=== PATIENT | female | born 1970 | race Caucasian/White ===

== ENCOUNTER 2016-06-06 08:18 | Emergency (ER) | payer OTHER ==
[~2016-06-06] VITALS: Wt 64.9 kg
[~2016-06-06 08:18] MED LIST: ALBU8.5H3; CALC500T99; CYCL-319 PO; FAMO20TA18; FLUT1DIS21; HYDR-13 PO; HYDR-2059 PO; HYDR-3011 PO; HYDR-3498 PO; IBUP-1542 PO; IBUP800T25 PO; MONT10TA21; NAPR-688 PO; NASO17 NASAL; PROM6.25 PO; PSEU30TA38 PO; RTPRO NEB; THEO400T2; [UNRECOGNIZED DRUG - CODE] PO
[2016-06-06] MEDS ORDERED: IBUPROFEN 600 MG TAB PO ONE (09:00)
[2016-06-06] MEDS ORDERED: HYD25 PO (09:40)
[2016-06-06] MEDS ORDERED: ALBU2.5V3 NEB (09:40)
[2016-06-06] MEDS ORDERED: ADV25050 INHALATION (09:40)
[2016-06-06] MEDS ORDERED: MONT10TA21 PO (09:40)
[2016-06-06] MEDS ORDERED: NAPR-688 PO (09:41)
[2016-06-06] MEDS ORDERED: THEO400T2 PO (09:41)
[2016-06-06] MEDS ORDERED: ALBU18HF INHALATION (09:41)
[2016-06-06] MEDS ORDERED: FLUO10TA PO (09:42)
--- NOTE | 2016-06-06 09:44 | RADRPT ---
PROCEDURE: Chest Radiograph. CLINICAL INDICATION: Chest pain after trauma TECHNIQUE: Single frontal chest radiograph. COMPARISON: Chest radiograph 10/25/2015 FINDINGS: The cardiomediastinal silhouette is within normal limits. There is no pneumothorax. No infiltrate o r effusion is seen. The bones are intact. IMPRESSION: 1. Unremarkable chest radiograph. RPTAT: KK .Genaro Monsivais MD, MD Date Time Electronically viewed and signed by .Genaro Monsivais MD, MD on 06/06/2016 09:43 .B/
[2016-06-06] MEDS ORDERED: HYDR-906 PO (09:45)
[2016-06-06] MEDS ORDERED: IBUP-1542 PO (10:27)
[2016-06-06] MEDS ORDERED: HYDR-902 PO (10:27)
--- NOTE | 2016-06-06 10:31 | ERD ---
ER Documentation Chief Complaint Date/Time DATE: 06/06/16 TIME: 10:28 Chief Complaint left side clavicular pain. no sob HPI This is a 46-year-old female complains of sharp pain located at the left clavicular head. She said the pain for 2 days now. She says the pain is sharp worse with movement of the left upper extremity and worse with laying on her left shoulder at night trying to sleep. Denies any recent trauma or pushing pulling injury. No shortness of breath no radiation of pain no diaphoresis no palpitations no fever no cough. She says the pain is better with rest and worse with movement ROS All systems reviewed and are negative except as per history of present illness. Medications Home Meds Active Scripts Hydrocodone/Acetaminophen ([place] 10-325 Tablet) 1 Each Tablet, 1 TAB PO Q6H Y for PAIN, #20 TAB Prov:NOAM JOHNSON. DO 06/06/16 Ibuprofen* (Motrin*) 600 Mg Tab, 600 MG PO Q8, #30 TAB Prov:NOAM JOHNSON DO 06/06/16 Reported Medications Hydrocodone/Acetaminophen ([place] 5-325 Tablet) 1 Each Tablet, 1 EACH PO DAILY Y for SEVERE PAIN LEVEL 7-10, TAB 06/06/16 Fluoxetine Hcl* (Fluoxetine Hcl*) 10 Mg Tablet, 10 MG PO DAILY, TAB 06/06/16 Naproxen* (Naproxen*) 500 Mg Tablet, 500 MG PO BID Y for PAIN, TAB 06/06/16 Theophylline Anhydrous* (Theophylline* ER) 400 Mg Tablet.sa, 400 MG PO BID, TAB.SA 06/06/16 Albuterol Sulfate* (Ventolin HFA*) 18 Gm Hfa.aer.ad, 2 PUFF INHALATION Q6H Y for WHEEZING AND RESP DISTRESS, #1 INHALER 06/06/16 Montelukast Sodium* (Singulair*) 10 Mg Tablet, 10 MG PO QHS, #30 TAB 06/06/16 Salmeterol Xinaf/Fluticasone* (Advair*) 250-50 Diskus Inhaler, 1 INH INHALATION BID, #1 INHALER 06/06/16 Albuterol Sulfate* (Albuterol Sulfate* Neb) 0.083%-3 Ml Neb, 2.5 MG NEB Q3H Y for WHEEZING AND SOB, #30 VIAL 06/06/16 Hydrochlorothiazide* (Hydrochlorothiazide*) 25 Mg Tab, 25 MG PO DAILY, #30 TAB 06/06/16 Discontinued Reported Medications Naproxen* (Naproxen*) 500 Mg Tablet, 500 MG PO PRN BID 11/23/10 Hydroxyzine Hcl* (Hydroxyzine Hcl*) 25 Mg Tablet, 25 MG PO PRN BID 11/23/10 Hydrocodone Bit/Acetaminophen (Hydrocodone-Apap 5-500 Tab) 1 Tab Tablet, 1 TAB PO PRN DAILY 11/23/10 Cyclobenzaprine Hcl* (Cyclobenzaprine Hcl*) 10 Mg Tablet, 10 MG PO HS 11/23/10 Ibuprofen* (Ibuprofen*) 600 Mg Tablet, 600 MG PO QID 11/23/10 Hydrocodone Bit-Acetaminophen* (Hydrocodone-APAP*) 1 Tab Tablet, 0.5 TAB PO PRN QID 11/23/10 Trimethobenzamide Hcl* (Trimethobenzamide Hcl*) 300 Mg Capsule, 300 MG PO QID 11/23/10 Fluticasone/Salmeterol (Advair 500-50 Diskus) 1 Disk W/Dev Disk.w.dev 06/29/10 Albuterol Sulfate* (Proair HFA*) 8.5 Gm Hfa.aer.ad 06/29/10 Calcium Carbonate ([id number]) 1 Tab Tablet 06/29/10 Montelukast Sodium* (Singulair*) 10 Mg Tablet 06/29/10 Famotidine* (Famotidine*) 20 Mg Tablet 06/29/10 Theophylline Anhydrous* (Theophylline* ER) 400 Mg Tablet.sa 06/29/10 Discontinued Scripts Ibuprofen* (Motrin*) 800 Mg Tab, 800 MG PO Q6H Y for PAIN AND OR ELEVATED TEMP, #30 TAB Prov:JOHANN MORROW DO 10/25/15 Mometasone Furoate* (Nasonex*) 50 Mcg/[place] - 17 Gm [place].pump, 1 SPRAY NASAL BID, #1 BOTTLE IN EACH NOSTRIL Prov:RYLAN LARRY PA-C 06/04/15 Pseudoephedrine Hcl* (Pseudoephedrine Hcl*) 30 Mg Tablet, 30 MG PO Q6 Y for CONGESTION, #30 TAB Prov:RYLAN LARRY PA-C 06/04/15 Albuterol Sulfate* (Proventil* Neb) 0.083% Neb, 2.5 MG NEB Q4 Y for SHORTNESS OF BREATH, #30 EA Prov:RYLAN LARRY PA-C 06/04/15 Promethazine w/Codeine* (Phenergan w/Codeine* Syrup) 5 Ml Syrup, 5 ML PO Q4H Y for COUGH, #100 ML Prov:RYLAN LARRY PA-C 06/04/15 Ibuprofen* (Motrin*) 600 Mg Tab, 600 MG PO Q6, #20 TAB Prov:BETHEL ADAIR MD 05/15/15 Hydrocodone Bit-Acetaminophen* ([place]if[place]*) 5-325 Mg Tab, 1 TAB PO Q4H Y for PAIN, # 14 TAB Prov:BETHEL ADAIR MD 05/15/15 Allergies Allergies: Coded Allergies: No Known Allergy (Verified , 11/23/10) PMhx/Soc History of Surgery: Yes (R Knee Surg,L Ankle Surg) Anesthesia Reaction: No Hx Neurological Disorder: No Hx Respiratory Disorders: Yes (Asthma) Hx Cardiac Disorders: Yes (HTN) Hx Psychiatric Problems: Yes (Depression) Hx Miscellaneous Medical Probl: Yes (GERD) Hx Alcohol Use: Yes (Social) Hx Substance Use: No Hx Tobacco Use: Yes (quit 7 months ago) Smoking Status: Current some day smoker FmHx Family History: No coronary disease Physical Exam Vitals Vital Signs Date Time Temp Pulse Resp B/P Pulse Ox O2 Delivery O2 Flow Rate FiO2 06/06/16 09:08 73 19 135/87 100 Room Air 06/06/16 08:20 98.5 85 20 193/110 100 Physical Exam Const: Well-developed, well-nourished Head: Atraumatic, normocephalic Eyes: Normal Conjunctiva, PERRLA, EOMI, normal sclera, no nystagmus ENT: Normal External Ears, Nose and Mouth, moist mucus membranes. Neck: Full range of motion. No meningismus, no lymphadenopathy. Resp: Clear to auscultation bilaterally, no wheezing, rhonchi, rales Cardio: Regular rate and rhythm, no murmurs, S1 S2 present Abd: Soft, non tender x 4, non distended. Normal bowel sounds, no guarding or rebound, no pulsitile abdominal masses or bruits Skin: No petechiae or rashes, no ecchymosis , no maculopapular rash Back: No midline or flank tenderness Ext: No cyanosis, or edema, FROM x 4, normal inspection, neurovascularly intact x 4, reproducible tenderness to palpation of the left clavicular head no erythema to the skin. The pain is worse with range of motion of the shoulder and elevation of the left upper extremity and with attempts to try to touch shoulder blades together will induce pain. Neur: Awake and alert, STR 5/5 x 4, sensation intact x 4, no focal findings, cerebellum intact Psych: Normal Mood and Affect Results 24 hrs Current Medications Medications (Trade) Dose Ordered Sig/Kacey Route PRN Reason Start Time Stop Time Status Last Admin Dose Admin Ibuprofen (Motrin) 600 mg ONCE ONCE PO 06/06/16 09:00 06/06/16 09:01 DC 06/06/16 08:55 Procedures/MDM EKG: Rate/Rhythm: Normal Sinus Rhythm,NL intervals QRS, ST, QT: NORMAL TX, QRS, QT] Impression: NORMAL EKG PROCEDURE: Chest Radiograph. CLINICAL INDICATION: Chest pain after trauma TECHNIQUE: Single frontal chest radiograph. COMPARISON: Chest radiograph 10/25/2015 FINDINGS: The cardiomediastinal silhouette is within normal limits. There is no pneumothorax. No infiltrate or effusion is seen. The bones are intact. IMPRESSION: 1. Unremarkable chest radiograph. RPTAT: KK .Genaro Monsivais MD, Date Time Electronically viewed and signed by .Genaro Monsivais MD, MD on 2016 09:43 .B/ CC: NOAM JOHNSON DO Patient's pain is musculoskeletal in origin there is pain at the clavicular head joint. Patient does not use IV drugs. No signs of septic joint. Departure Diagnosis: Primary Impression: Costochondritis Condition: Stable Patient Instructions: Costochondritis NOAM JOHNSON DO Jun 06, 2016 10:31
[2016-06-06 10:33] VITALS: BP 127/75; PULSE 77; RESP 19; TEMP 98
== END 2016-06-06 10:34 | disposition home or self-care (01) ==
LOC: E/R 08:18
DX: M94.0 Chondrocostal junction syndrome [Tietze] (principal); F17.210 Nicotine dependence, cigarettes, uncomplicated; I10 Essential (primary) hypertension; J45.909 Unspecified asthma, uncomplicated
CPT/HCPCS: 71010; 93005; Z7502; Z7610

== ENCOUNTER 2017-06-20 08:15 | Emergency (ER) | END 2017-06-20 10:54 | disposition home or self-care (01) ==

== ENCOUNTER 2018-04-23 01:39 | Emergency (ER) | payer OTHER ==
[~2018-04-23] VITALS: Ht 154.9 cm; Wt 72.3 kg
[~2018-04-23 01:39] MED LIST changes: +ADV25050 INHALATION; +ALBU18HF INHALATION; +ALBU2.5V3 NEB; -ALBU8.5H3; +AZIT250T PO; -CALC500T99; -CYCL-319 PO; +DYAZIDE PO; -FAMO20TA18; +FLUO10TA PO; -FLUT1DIS21; -HYDR-13 PO; -HYDR-2059 PO; -HYDR-3011 PO; -HYDR-3498 PO; +HYDR-4011 PO; +HYDR25TA6 PO; -IBUP800T25 PO; +METR500T19 PO; -MONT10TA21; +MONT10TA21 PO; -NASO17 NASAL; +OXYB10TA PO; +PRED10TA PO; -PROM6.25 PO; -PSEU30TA38 PO; -RTPRO NEB; -THEO400T2; +THEO400T2 PO; -[UNRECOGNIZED DRUG - CODE] PO
[2018-04-23 01:44] VITALS: Ht 154.9 cm; Wt 72.3 kg
--- NOTE | 2018-04-23 02:11 | ERD ---
ER Documentation Chief Complaint Chief Complaint headache/anxiety x 2 days HPI This is a 48-year-old female who presents here in emergency department with complaints of headache that got worse today. Stated that she has history of hypertension. LMP: Unknown. M2. Denies head injury, loss of consciousness, dizziness, neck pain, neck stiffness, throat pain, difficulty swallowing, difficulty breathing lying flat, shoulder pain, chest pain, back pain, abdominal pain, nausea, vomiting, constipation, diarrhea, urinary symptoms, or possibility being , loss of bowel and bladder control, trauma, injury, falls, difficulty walking due to pain, numbness or tingling sensation, calf pain, recent travel, recent major surgery in the last 3 weeks, calf pain, recent long travel, recent exposure to any illness, recent antibiotic use in the last 3 months, fever, chills, seizures. Past medical history: Hypertension. Surgical history: Social: Denies smoking, use of alcoholic beverages, use of illegal drugs. ROS All systems reviewed and are negative except as per history of present illness. Medications Home Meds Active Scripts Benzonatate* (Tessalon Perle*) 100 Mg Capsule, 100 MG PO Q8H PRN for COUGH, #15 CAP Prov:PASILABAN,KLAR F 04/23/18 Azithromycin* (Zithromax*) 250 Mg Tablet, 250 MG PO .ZPACK DIRECTED, #6 TAB TAKE 500 MG (2 TABS) THE FIRST DAY THEN 250 MG (1 TAB) DAYS 2-5 Prov:PASILABAN,KLAR F 04/23/18 Hydroxyzine Hcl* (Hydroxyzine Hcl*) 50 Mg Tablet, 50 MG PO Q6H PRN for ANXIETY, #30 TAB Prov:PASILABAN,KLAR F 04/23/18 Hydrocodone/Acetaminophen ([place] 5-325 Tablet) 1 Each Tablet, 1 TAB PO Q6H PRN for PAIN, #20 TAB Prov:PASILABAN,KLAR F 04/23/18 Azithromycin* (Zithromax*) 250 Mg Tablet, 250 MG PO .ZPACK DIRECTED, #6 TAB TAKE 500 MG (2 TABS) THE FIRST DAY THEN 250 MG (1 TAB) DAYS 2-5 Prov:GURPREET STORY 06/20/17 Ibuprofen* (Motrin*) 600 Mg Tab, 600 MG PO Q8, #30 TAB Prov:NOAM JOHNSON DO 06/06/16 Reported Medications Metronidazole* (Metronidazole*) 500 Mg Tablet, 500 MG PO Q8, TAB 06/20/17 Prednisone* (Prednisone*) 10 Mg Tab, 10 MG PO TID, TAB 06/20/17 Oxybutynin Chloride (Oxybutynin Chloride ER) 10 Mg Tab.er.24, 10 MG PO DAILY, #30 06/20/17 Triamterene-HCTZ (Dyazide) 37.5 - 25 Mg Cap, 1 TAB PO DAILY, #30 06/20/17 Hydrocodone/Acetaminophen ([place] 5-325 Tablet) 1 Each Tablet, 1 EACH PO DAILY PRN for SEVERE PAIN LEVEL 7-10, TAB 06/06/16 Fluoxetine Hcl* (Fluoxetine Hcl*) 10 Mg Tablet, 10 MG PO DAILY, TAB 06/06/16 Naproxen* (Naproxen*) 500 Mg Tablet, 500 MG PO BID PRN for PAIN, TAB 06/06/16 Theophylline Anhydrous* (Theophylline* ER) 400 Mg Tablet.sa, 400 MG PO BID, TAB.SA 06/06/16 Albuterol Sulfate* (Ventolin HFA*) 18 Gm Hfa.aer.ad, 2 PUFF INHALATION Q6H PRN for WHEEZING AND RESP DISTRESS, #1 INHALER 06/06/16 Montelukast Sodium* (Singulair*) 10 Mg Tablet, 10 MG PO QHS, #30 TAB 06/06/16 Salmeterol Xinaf/Fluticasone* (Advair*) 250-50 Diskus Inhaler, 1 INH INHALATION BID, #1 INHALER 06/06/16 Albuterol Sulfate* (Albuterol Sulfate* Neb) 0.083%-3 Ml Neb, 2.5 MG NEB Q3H PRN for WHEEZING AND SOB, #30 VIAL 06/06/16 Hydrochlorothiazide* (Hydrochlorothiazide*) 25 Mg Tab, 25 MG PO DAILY, #30 TAB 06/06/16 Allergies Allergies: Coded Allergies: No Known Allergy (Verified , 04/23/18) PMhx/Soc History of Surgery: Yes (R Knee Surg,L Ankle Surg) Anesthesia Reaction: No Hx Neurological Disorder: No Hx Respiratory Disorders: Yes (Asthma) Hx Cardiac Disorders: Yes (HTN) Hx Psychiatric Problems: Yes (Depression) Hx Miscellaneous Medical Probl: Yes (GERD) Hx Alcohol Use: Yes (Social) Hx Substance Use: No Hx Tobacco Use: Yes Physical Exam Vitals Physical Exam Const: No acute distress Head: Atraumatic Eyes: Normal Conjunctiva ENT: Normal External Ears, Nose and Mouth. Neck: Full range of motion. No meningismus. Resp: Clear to auscultation bilaterally Cardio: Regular rate and rhythm, no murmurs Abd: Soft, non tender, non distended. Normal bowel sounds Skin: No petechiae or rashes Back: No midline or flank tenderness Ext: No cyanosis, or edema Neur: Awake and alert Psych: Normal Mood and Affect Results 24 hrs Laboratory Tests Test 04/23/18 02:26 04/23/18 03:26 White Blood Count 8.5 10^3/ul Red Blood Count 4.40 10^6/ul Hemoglobin 14.2 g/dl Hematocrit 42.0 % Mean Corpuscular Volume 95.5 fl Mean Corpuscular Hemoglobin 32.3 pg Mean Corpuscular Hemoglobin Concent 33.8 g/dl Red Cell Distribution Width 12.9 % Platelet Count 256 10^3/UL Mean Platelet Volume 9.9 fl Immature Granulocytes % 0.200 % Neutrophils % 58.4 % Lymphocytes % 33.4 % Monocytes % 6.1 % Eosinophils % 1.4 % Basophils % 0.5 % Nucleated Red Blood Cells % 0.0 /100WBC Immature Granulocytes # 0.020 10^3/ul Neutrophils # 5.0 10^3/ul Lymphocytes # 2.8 10^3/ul Monocytes # 0.5 10^3/ul Eosinophils # 0.1 10^3/ul Basophils # 0.0 10^3/ul Nucleated Red Blood Cells # 0.0 10^3/ul Prothrombin Time 11.7 Sec Prothrombin Time Ratio 0.9 INR International Normalized Ratio 0.85 Activated Partial Thromboplast Time 28.2 Sec Sodium Level 142 mmol/L Potassium Level 4.1 mmol/L Chloride Level 102 mmol/L Carbon Dioxide Level 29 mmol/L Anion Gap 11 Blood Urea Nitrogen 14 mg/dl Creatinine 0.51 mg/dl Est Glomerular Filtrat Rate mL/min > 60 mL/min Glucose Level 105 mg/dl Calcium Level 9.7 mg/dl Total Bilirubin 0.1 mg/dl Direct Bilirubin 0.00 mg/dl Indirect Bilirubin 0.1 mg/dl Aspartate Amino Transf (AST/SGOT) 16 IU/L Alanine Aminotransferase (ALT/SGPT) 27 IU/L Alkaline Phosphatase 90 IU/L Troponin I < 0.012 ng/ml Total Protein 6.6 g/dl Albumin 4.3 g/dl Globulin 2.30 g/dl Albumin/Globulin Ratio 1.86 Urine Color STRAW Urine Clarity SLIGHTLY CLOUDY Urine pH 6.0 Urine Specific [place] 1.002 Urine Ketones NEGATIVE mg/dL Urine Nitrite NEGATIVE mg/dL Urine Bilirubin NEGATIVE mg/dL Urine Urobilinogen NEGATIVE mg/dL Urine Leukocyte Esterase NEGATIVE Lilly/ul Urine Microscopic RBC 0 /HPF Urine Microscopic WBC 0 /HPF Urine Squamous Epithelial Cells FEW /HPF Urine Bacteria FEW /HPF Urine Hemoglobin 1+ mg/dL Urine Glucose NEGATIVE mg/dL Urine Total Protein NEGATIVE mg/dl Current Medications Medications Dose Sig/Kacey Start Time Status Last (Trade) Ordered Route PRN Stop Time Admin Dose Reason Admin 1 tab ONCE ONCE 04/23/18 DC 04/23/18 Acetaminophen PO 03:30 04:05 / 04/23/18 Hydrocodone 03:31 Bitart ([place] (10/325)) Procedures/MDM Diagnostic tests: EKG: Normal sinus rhythm. Blood works: Reviewed. CT of the brain: No acute intracranial abnormality. Chest x-ray: Central right upper lobe bronchitis. Treatment: Not applicable. Re-evaluation: Denies headache, chest pain. Lung sounds are clear to auscultation. Differential diagnosis I have low suspicion for sepsis, acute hemorrhage, acute coronary syndrome, acute myocardial infarction. Final diagnosis: Incidental finding of bronchitis. Headache. Prescription: Azithromycin. [place]. Hydroxyzine. Follow-up with PCP in the next 24-48 hours. Come back here in the emergency department for any new symptoms or any worsening symptoms. All questions and concerns were answered. Patient and family members verbalized understanding and agreed with plan of care. Hemodynamically stable on discharge. Departure Diagnosis: Primary Impression: Headache Additional Impressions: Bronchitis Anxiety Condition: Stable Additional Instructions: Follow-up with PCP in the next 24-48 hours. Come back here in the emergency department for any new symptoms or any worsening symptoms. ROBERT ADAN Apr 23, 2018 02:11
[2018-04-23] MEDS ORDERED: HYDROCODONE/APAP (10/325) TAB PO ONE (03:30)
[2018-04-23] MEDS ORDERED: HYDR-4011 PO (04:04)
[2018-04-23] MEDS ORDERED: BENZ-6 PO (04:05)
[2018-04-23] MEDS ORDERED: AZIT250T PO (04:05)
[2018-04-23] MEDS ORDERED: HYDR50TA15 PO (04:05)
[2018-04-23 04:26] VITALS: BP 157/83; PULSE 66; RESP 20
== END 2018-04-23 04:28 | disposition home or self-care (01) ==
LOC: FTE 01:39
DX: J40 Bronchitis, not specified as acute or chronic (principal); F41.9 Anxiety disorder, unspecified; I10 Essential (primary) hypertension; R07.9 Chest pain, unspecified; Z87.891 Personal history of nicotine dependence
CPT/HCPCS: 70450; 71046; 80053; 81001; 84484; 85025; 85610; 85730; 87086; 93005; Z7502; Z7610